=== PATIENT | female | born 1940 | race Hispanic/Latino ===

== ENCOUNTER 2018-02-13 13:57 | Emergency (ER) | payer MEDICARE ==
[2018-02-13 13:58] VITALS: BMI 36.8
[2018-02-13] MEDS ORDERED: TDAP Vaccine 0.5 mL Syr IM ONE (14:40)
--- NOTE | 2018-02-13 14:55 | ED PDOC ---
Arrival/HPI - General Chief Complaint: Trauma Time Seen by Provider: 02/13/18 14:20 Historian: Patient - History of Present Illness Narrative History of Present Illness (Text): 02/13/18 14:46 77 y/o female with PMH of HTN presents to the ED c/o headache, neck pain, and bilateral hand pain s/p witnessed mechanical fall 1 hour [employer]UL[employer]. Patient was walking down the sidewalk when she tripped on an uneven edge, falling to the ground and hitting her forehead and face. Denies LOC, was helped to her feet by two [facility] police officers. Pt not on blood thinners. Has not taken anything for pain. Unknown last tetanus. Compliant with hypertension medications. Denies dizziness, vision changes, N/V, abdominal pain, back pain, chest pain, SOB, numbness, weakness, paresthesias, or any other associated symptoms. PMD: Dr. Geoffrey Robertson Past Medical History - Infectious Disease Hx of Infectious Diseases: None - Reproductive Menopause: Yes - Cardiac Hx Hypertension: Yes - Pulmonary Hx Respiratory Disorders: No - Neurological Hx Neurological Disorder: No - HEENT Hx HEENT Disorder: No - Renal Hx Renal Disorder: No - Endocrine/Metabolic Hx Endocrine Disorders: No - Hematological/Oncological Hx Anemia: Yes - Integumentary Hx Dermatological Disorder: No - Musculoskeletal/Rheumatological Hx Musculoskeletal Disorders: Yes Hx Arthritis: Yes Hx Falls: No - Gastrointestinal Hx Diverticulitis: Yes - Genitourinary/Gynecological Hx Genitourinary Disorders: No - Psychiatric Hx Anxiety: Yes Hx Substance Use: No - Surgical History Other/Comment: ENDOSCOPY, COLONOSCOPY - Anesthesia Hx Anesthesia: Yes - Suicidal Assessment Feels Threatened In Home Enviroment: No Family/Social History - Physician Review Nursing Documentation Reviewed: Yes Family/Social History: No Known Family HX Smoking Status: Never Smoked Hx Alcohol Use: No Hx Substance Use: No Hx Substance Use Treatment: No Allergies/Home Meds Allergies/Adverse Reactions: Allergies prednisone Adverse Reaction (Verified 04/08/16 18:00) FATIGUE Home Medications: Home Meds Medication Instructions Recorded Confirmed Alprazolam [Xanax] 0.25 mg PO DAILY PRN 07/20/11 10/09/16 Esomeprazole Magnesium [Nexium] 40 mg PO DAILY 04/08/16 10/09/16 Lisinopril/Hydrochlorothiazide 1 each PO DAILY 10/09/16 10/09/16 [Lisinopril-Hctz 20-12.5 mg Tab] Physical Exam Vital Signs Reviewed: Yes Vital Signs Temp Pulse Resp BP Pulse Ox 02/13/18 14:15 97.9 F 75 16 173/100 H 98 Last Vital Signs Temp 98.1 F 02/13/18 16:11 Pulse 79 02/13/18 18:26 Resp 18 02/13/18 18:26 BP 154/82 H 02/13/18 18:26 Pulse Ox 97 02/13/18 18:26 Temperature: Afebrile Blood Pressure: Hypertensive Pulse: Regular Respiratory Rate: Normal Appearance: Positive for: Well-Appearing, Non-Toxic, Comfortable Pain Distress: None Mental Status: Positive for: Alert and Oriented X 3 - Systems Exam Head: Present: Normocephalic, Tenderness (left forehead), Swelling (mild, superficial to left forehead), Abrasion (mild, superficial to left forehead) Pupils: Present: PERRL Extroacular Muscles: Present: EOMI. No: Gaze Palsy Conjunctiva: Present: Normal. No: Injected Ears: Present: Normal, NORMAL TM, Normal Canal Mouth: Present: Moist Mucous Membranes Nose (External): Present: Other (mild swelling and erythema) Nose (Internal): No: No Active Bleeding, Septal Deviation, Septal Hematoma, Epistaxis Neck: Present: Normal Range of Motion, Other (mild pain on ROM). No: Meningeal Signs, MIDLINE TENDERNESS Respiratory/Chest: Present: Clear to Auscultation, Good Air Exchange, Tender to Palpation (right anterior inferior ribs), Other (normal inspection ). No: Respiratory Distress, Accessory Muscle Use, Decreased Breath Sounds Cardiovascular: Present: Regular Rate and Rhythm, Normal S1, S2, Peripheal Pulses Present Abdomen: Present: Normal Bowel Sounds, Other (normal inspection). No: Tenderness, Distention, Peritoneal Signs, Rebound, Guarding Back: Present: Normal Inspection. No: CVA Tenderness, Midline Tenderness, Para spinal Tenderness Upper Extremity: Present: Normal ROM, NORMAL PULSES, Tenderness (bilateral palms), Neurovascularly Intact, Capillary Refill < 2s, Other (ecchymosis to bilateral palms without laceration or abrasion. Full ROM, strength, sensation bilaterally. (-) snuffbox tenderness). No: Cyanosis, Edema, Swelling, Temperature Abnormalties, Deformity Lower Extremity: Present: Normal Inspection, NORMAL PULSES, Normal ROM, Neurovascularly Intact, Capillary Refill < 2 s, Other (small superficial abrasion left knee). No: Edema, Tenderness Neurological: Present: GCS=15, CN II-XII Intact, Speech Normal, Motor Func Grossly Intact, Normal Sensory Function, Normal Cerebellar Funct, Gait Normal, Memory Normal Skin: Present: Warm, Dry, Abrasion (left forehead, left knee), Other (Ecchymosis bilateral palms). No: Rashes Lymphatic: No: Cervical Adenopathy Psychiatric: Present: Alert, Oriented x 3, Normal Insight, Normal Concentration, Normal Affect, Normal Mood Medical Decision Making ED Course and Treatment: 02/13/18 14:55 Initial Plan: * Bilateral hand XR * Head CT * Cervical Spine CT * Maxillofacial CT * Tylenol On initial exam, patient in no acute distress but appears anxious, resting comfortably in wheelchair. 16:14 Now c/o right sided rib pain, worse with breathing. Pt TTP over anterior right inferior ribs. Will get PA chest with bilateral rib series. Case discussed with ED attending Dr. Calabrese, who agrees with plan of care and disposition. Both hands and wrists wrapped with [place] bandages. Tolerating PO without difficulty. 18:30 Imaging negative for acute pathology. Patient reports decrease in pain after tylenol. Patient states she will followup with her PMD tomorrow in the office. BP has improved with time and pain medications. Patient states she is feeling l ess anxious, requesting discharge home. Vitals stable for discharge home. Plan of care discussed with patient, and strict instructions given regarding prescriptions, importance of follow up, and signs to return to Emergency Department, to include headache, vision changes, dizziness, N/V, numbness, paresthesias, weakeness, or any other new/worsening symptoms. Patient verbalizes understanding of discussion. Patient A&Ox3, ambulating with steady gait, stable for discharge home. - RAD Interpretation Narrative RAD Interpretations (Text): 02/13/18 15:41 Left Hand: FINDINGS: BONES: No acute fracture or destructive bony lesion identified. JOINTS: Diffuse degenerative changes seen throughout the right hand but particularly at the basal joint where there is gross joint space narrowing and articular cortical sclerosis. No subluxation or dislocation appreciated. SOFT TISSUES: Normal. OTHER FINDINGS: None. IMPRESSION: No acute fracture or dislocation left hand. Degenerative change are identified as discussed above, particularly at the basal joint. Right Hand: FINDINGS: BONES: No acute fracture or destructive bony lesion identified. JOINTS: No subluxation or dislocation identified. Late stage osteoarthritis, including subchondral cyst formation, is appreciated at the basal joint with lesser degenerative changes seen throughout the remaining carpal metacarpal joints and mild degenerative changes seen throughout the interphalangeal joints diffusely. SOFT TISSUES: Normal. OTHER FINDINGS: None. IMPRESSION: No acute fracture or dislocation right hand. Degenerative changes are identified diffusely but particularly at the basal joint which is grossly degenerated. Maxillofacial CT FINDINGS: NASAL BONES: Unremarkable ORBITS: No fracture identified. Borderline inferior bilateral frontal scalp soft tissue edema extending to the supraorbital spaces versus variant soft tissue pattern. PARANASAL SINUSES/ MASTOIDS: Clear. MAXILLA: Unremarkable. MANDIBLE/ TEMPOROMANDIBULAR JOINTS: Unremarkable. SKULL BASE: Unremarkable. TEMPORAL BONES: Middle ears and mastoid grossly unremarkable. OTHER FINDINGS: None. IMPRESSION: No fracture throughout the facial bones. Limited questionable soft tissue edema inferior bilateral frontal scalp/supraorbital orbital distribution though this is not definite. Head CT: FINDINGS: HEMORRHAGE: No intracranial hemorrhage. BRAIN: Good corticomedullary differentiation is seen. Reiterated diffuse cerebral atrophy and chronic microangiopathy. No suspicious extra-axial fluid collection is identified and the midline brain anatomy appears grossly nonfocal as imaged. No mass effect identified. VENTRICLES: Unremarkable. No hydrocephalus. CALVARIUM: Unremarkable. PARANASAL SINUSES: Unremarkable as visualized. No significant inflammatory changes. MASTOID AIR CELLS: Unremarkable as visualized. No inflammatory changes. OTHER FINDINGS: None. IMPRESSION: Stable age-appropriate age related neuro degenerative changes are reiterated without definite acute interval findings, as discussed above. Cervical Spine CT: FINDINGS: VERTEBRAE: Mild straightening of the cervical curvature is appreciated without fracture. No spondylolisthesis. Limited multilevel cervical spondylosis is appreciate the mid cervical spine with congenital fusion at C5-6 vertebral bodies and likely bilateral facet joints as well. The odontoid process is intact though advanced degenerative changes seen the C1-2 articulation. Craniocervical junction appears intact. DISCS/SPINAL CANAL/NEURAL FORAMINA: At C2-3, there is a borderline degenerative left neural foraminal stenosis with none on the right. No significant central stenosis though minimal disc osteophyte complex identified. At C3-4, borderline central stenosis results from a circumferential disc osteophyte complex with asymmetric uncovertebral and facet arthropathy causing moderate left degenerative neural foraminal stenosis but none on the right. At C4-5, borderline central stenosis is evident due to circumferential disc osteophyte complex with asymmetric degenerative osteophytes resulting in moderate left but mild right neural foraminal stenoses. At C5-6, mild degenerative neural foraminal stenoses are identified bilaterally with no significant central canal stenosis. At C6-7, there is no significant central stenosis though limited disc osteophyte complex is present here. Moderate to severe bilateral neural foraminal stenoses are identified on degenerative basis. At C7-T1, no bony central canal or neural foraminal stenosis is apparent. No large disc herniation is identified at any specific level. MRI is more sensitive for added characterization as clinically warranted. PARASPINAL SOFT TISSUES: Unremarkable. OTHER FINDINGS: Right lobe thyroid nodule with none apparent at the left. IMPRESSION: 1. No fracture or spondylolisthesis. 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 2. Multilevel degenerative neural foraminal stenoses are identified with border line degenerative C3-4 and C4-5 central canal stenosis as per above. No large disc herniation. MRI is available for added characterization as clinically warranted. 3. Incidental right thyroid lobe nodule. Consider follow-up elective ultrasonography if not already evaluated. Rib and CXR: FINDINGS: RIGHT RIBS: No acute fracture or focal lesion visualized. LEFT RIBS: No acute fracture or focal lesion visualized. LUNGS: The lungs are well inflated and clear. PLEURA: No pneumothorax or pleural fluid. CARDIOVASCULAR: Normal cardiac size. No pulmonary vascular congestion. No aortic atherosclerotic calcification present OTHER FINDINGS: None. IMPRESSION: No acute rib fractures. No acute findings. Radiology Orders: 02/13/18 14:40 HAND LEFT 3 VIEWS ROUTINE [RAD] Stat HAND RIGHT 3 VIEWS [RAD] Stat 02/13/18 14:41 CERVICAL SPINE W/O CONTRAST [CT] Stat HEAD W/O CONTRAST [CT] Stat MAXILLOFACIAL W/O CONTRAST [CT] Stat Digital Content Specialist: Radiologist - Medication Orders Current Medication Orders: Discontinued Medications Acetaminophen (Tylenol 325mg Tab) 650 mg PO STAT STA Stop: 02/13/18 14:41 Tetanus/Reduced Diphtheria/Acell Pertussis (Boostrix Vaccine Inj) 0.5 ml IM .ONCE ONE Stop: 02/13/18 14:41 Disposition/Present on Arrival - Present on Arrival Any Indicators Present on Arrival: No History of DVT/PE: No History of Uncontrolled Diabetes: No Urinary Catheter: No History of Decub. Ulcer: No History Surgical Site Infection Following: None - Disposition Have Diagnosis and Disposition been Completed?: Yes Diagnosis: Fall, Hand contusion, Head injury Disposition: HOME/ ROUTINE Disposition Time: 18:20 Patient Plan: Discharge Condition: IMPROVED Discharge Instructions (ExitCare): Closed Head Injury (DC) Additional Instructions: Tylenol/ibuprofen for pain Rest, no strenuous activity Followup with primary doctor within 2 days Return to ER for any new/worsening symptoms Referrals: Ailyn LEON,Geoffrey Canales MD [Family Provider] - Follow up with primary Forms: [employer] ([place])
--- NOTE | 2018-02-13 15:43 | RAD ---
PROCEDURE: Left Hand Radiographs. HISTORY: fall r/o fracture COMPARISON: None. FINDINGS: BONES: No acute fracture or destructive bony lesion identified. JOINTS: Diffuse degenerative changes seen throughout the right hand but particularly at the basal joint where there is gross joint space narrowing and articular cortical sclerosis. No subluxation or dislocation appreciated. SOFT TISSUES: Normal. OTHER FINDINGS: None. IMPRESSION: No acute fracture or dislocation left hand. Degenerative change are identified as discussed above, particularly at the basal joint.
--- NOTE | 2018-02-13 15:48 | RAD ---
PROCEDURE: Right Hand Radiographs. HISTORY: fall r/o fracture COMPARISON: None. FINDINGS: BONES: No acute fracture or destructive bony lesion identified. JOINTS: No subluxation or dislocation identified. Late stage osteoarthritis, including subchondral cyst formation, is appreciated at the basal joint with lesser degenerative changes seen throughout the remaining carpal metacarpal joints and mild degenerative changes seen throughout the interphalangeal joints diffusely. SOFT TISSUES: Normal. OTHER FINDINGS: None. IMPRESSION: No acute fracture or dislocation right hand. Degenerative changes are identified diffusely but particularly at the basal joint which is grossly degenerated.
[2018-02-13 16:12] VITALS: TEMP 98.1
--- NOTE | 2018-02-13 17:03 | CT ---
Date of service: 02/13/2018 PROCEDURE: CT HEAD WITHOUT CONTRAST. HISTORY: headache COMPARISON: Unenhanced head CT 08/23/2017 as well as 08/07/2014.. TECHNIQUE: Axial computed tomography images were obtained through the head/brain without intravenous contrast. Radiation dose: Total exam DLP = 939.27 mGy-cm. This CT exam was performed using one or more of the following dose reduction techniques: Automated exposure control, adjustment of the mA and/or kV according to patient size, and/or use of iterative reconstruction technique. FINDINGS: HEMORRHAGE: No intracranial hemorrhage. BRAIN: Good corticomedullary differentiation is seen. Reiterated diffuse cerebral atrophy and chronic microangiopathy. No suspicious extra-axial fluid collection is identified and the midline brain anatomy appears grossly nonfocal as imaged. No mass effect identified. VENTRICLES: Unremarkable. No hydrocephalus. CALVARIUM: Unremarkable. PARANASAL SINUSES: Unremarkable as visualized. No significant inflammatory changes. MASTOID AIR CELLS: Unremarkable as visualized. No inflammatory changes. OTHER FINDINGS: None. IMPRESSION: Stable age-appropriate age related neuro degenerative changes are reiterated without definite acute interval findings, as discussed above.
--- NOTE | 2018-02-13 17:06 | CT ---
Date of service: 02/13/2018 PROCEDURE: CT MAXILLOFACIAL BONES WITHOUT CONTRAST HISTORY: facial injury COMPARISON: None available. TECHNIQUE: Contiguous axial CT images of the maxillofacial bones were obtained. Coronal and sagittal reformats were generated. Radiation dose: Total exam DLP = 730.88 mGy-cm. This CT exam was performed using one or more of the following dose reduction techniques: Automated exposure control, adjustment of the mA and/or kV according to patient size, and/or use of iterative reconstruction technique. FINDINGS: NASAL BONES: Unremarkable. ORBITS: No fracture identified. Borderline inferior bilateral frontal scalp soft tissue edema extending to the supraorbital spaces versus variant soft tissue pattern. PARANASAL SINUSES/ MASTOIDS: Clear. MAXILLA: Unremarkable. MANDIBLE/ TEMPOROMANDIBULAR JOINTS: Unremarkable. SKULL BASE: Unremarkable. TEMPORAL BONES: Middle ears and mastoid grossly unremarkable. OTHER FINDINGS: None. IMPRESSION: No fracture throughout the facial bones. Limited questionable soft tissue edema inferior bilateral frontal scalp/supraorbital orbital distribution though this is not definite.
--- NOTE | 2018-02-13 17:13 | CT ---
Date of service: 02/13/2018 PROCEDURE: CT Cervical Spine without contrast HISTORY: neck pain COMPARISON: None available. TECHNIQUE: Axial computed tomography images were obtained of the cervical spine without the use of intravenous contrast. Coronal and sagittal reformatted images were created and reviewed. Radiation dose: Total exam DLP = 697.97 mGy-cm. This CT exam was performed using one or more of the following dose reduction techniques: Automated exposure control, adjustment of the mA and/or kV according to patient size, and/or use of iterative reconstruction technique. FINDINGS: VERTEBRAE: Mild straightening of the cervical curvature is appreciated without fracture. No spondylolisthesis. Limited multilevel cervical spondylosis is appreciate the mid cervical spine with congenital fusion at C5-6 vertebral bodies and likely bilateral facet joints as well. The odontoid process is intact though advanced degenerative changes seen the C1-2 articulation. Craniocervical junction appears intact. DISCS/SPINAL CANAL/NEURAL FORAMINA: At C2-3, there is a borderline degenerative left neural foraminal stenosis with none on the right. No significant central stenosis though minimal disc osteophyte complex identified. At C3-4, borderline central stenosis results from a circumferential disc osteophyte complex with asymmetric uncovertebral and facet arthropathy causing moderate left degenerative neural foraminal stenosis but none on the right. At C4-5, borderline central stenosis is evident due to circumferential disc osteophyte complex with asymmetric degenerative osteophytes resulting in moderate left but mild right neural foraminal stenoses. At C5-6, mild degenerative neural foraminal stenoses are identified bilaterally with no significant central canal stenosis. At C6-7, there is no significant central stenosis though limited disc osteophyte complex is present here. Moderate to severe bilateral neural foraminal stenoses are identified on degenerative basis. At C7-T1, no bony central canal or neural foraminal stenosis is apparent. No large disc herniation is identified at any specific level. MRI is more sensitive for added characterization as clinically warranted. PARASPINAL SOFT TISSUES: Unremarkable. OTHER FINDINGS: Right lobe thyroid nodule with none apparent at the left. IMPRESSION: 1. No fracture or spondylolisthesis. 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 2. Multilevel degenerative neural foraminal stenoses are identified with borderline degenerative C3-4 and C4-5 central canal stenosis as per above. No large disc herniation. MRI is available for added characterization as clinically warranted. 3. Incidental right thyroid lobe nodule. Consider follow-up elective ultrasonography if not already evaluated.
--- NOTE | 2018-02-13 18:00 | RAD ---
Date of service: 02/13/2018 PROCEDURE: Radiographs of the chest and bilateral ribs HISTORY: rib pain s/p fall COMPARISON: None available. TECHNIQUE: Frontal radiograph of the chest and multiple oblique radiographs of the bilateral ribs were obtained. FINDINGS: RIGHT RIBS: No acute fracture or focal lesion visualized. LEFT RIBS: No acute fracture or focal lesion visualized. LUNGS: The lungs are well inflated and clear. PLEURA: No pneumothorax or pleural fluid. CARDIOVASCULAR: Normal cardiac size. No pulmonary vascular congestion. No aortic atherosclerotic calcification present OTHER FINDINGS: None. IMPRESSION: No acute rib fractures. No acute findings.
[2018-02-13 18:26] VITALS: BP 154/82; PULSE 79; RESP 18; O2SAT 97
== END 2018-02-13 18:26 | disposition home or self-care (01) ==
LOC: ED 13:57
DX: S09.90XA Unspecified injury of head, initial encounter (principal); S60.229A Contusion of unspecified hand, initial encounter; W01.0XXA Fall on same level from slipping, tripping and stumbling without subsequent striking against object, initial encounter; Y92.480 Sidewalk as the place of occurrence of the external cause; I10 Essential (primary) hypertension; Z23 Encounter for immunization

== ENCOUNTER → 2018-05-03 | Outpatient (CLI) | payer MEDICARE | LOC: RAD 08:31 ==

== ENCOUNTER 2018-05-07 21:42 | Emergency (ER) | payer MEDICARE ==
[2018-05-07 21:50] VITALS: BMI 35.5
[2018-05-07 21:52] VITALS: RESP 18; TEMP 97.6
[2018-05-07] MEDS ORDERED: Sodium Chloride 0.9% 1,000 ML IV SCH (22:30)
[2018-05-07 23:12] LABS: BASO # 0.03 K/mm3 (0.0-2.0); BASO % 0.4 % (0.0-3.0); EOS # 0.2 (0.0-0.7); EOS % 2.2 % (1.5-5.0); LYMPH # 1.5 (1.2-3.4); LYMPH % 20.2 % (22.0-35.0); MEAN CELL VOLUME 95.1 fl (80.0-105.0); MEAN CORPUSCULAR HEMOGLOBIN 30.8 pg (25.0-35.0); MEAN CORPUSCULAR HGB CONC 32.3 g/dl (31.0-37.0); MEAN PLATELET VOLUME 12.3 fl (7.0-11.0); MONO # 0.7 (0.1-0.6); MONO % 8.7 % (1.0-6.0); RBC 3.9 10^6/uL (3.5-6.1); RED CELL DISTRIBUTION WIDTH 13.2 % (11.5-14.5); WHITE BLOOD COUNT 7.6 10^3/uL (4.5-11.0)
[2018-05-08 00:15] LABS: ALB/GLOB RATIO 1.1 (1.1-1.8); ALBUMIN 3.8 g/dL (3.0-4.8); ALT/SGPT 9 U/L (7-56); AST/SGOT 25 U/L (14-36); BLOOD UREA NITROGEN 30 mg/dL (7-21); CALCIUM 9.6 mg/dL (8.4-10.5); GFR NON-AFRICAN AMERICAN 34
[2018-05-08 00:26] LABS: TROPONIN I < 0.01 ng/mL
[2018-05-08 00:44] LABS: URINE BILIRUBIN NEGATIVE (NEGATIVE); URINE BLOOD NEGATIVE (NEGATIVE); URINE GLUCOSE (UA) NEGATIVE (NEGATIVE); URINE LEUKOCYTE ESTERASE NEGATIVE Leu/uL (NEGATIVE); URINE PROTEIN NEGATIVE mg/dL (<30 mg/dL); URINE UROBILINOGEN 0.2 E.U./dL (<1 E.U./dL)
[2018-05-08 00:48] LABS: URINE APPEARANCE CLEAR (CLEAR); URINE COLOR YELLOW (YELLOW)
[2018-05-08 02:14] VITALS: BP 149/78; PULSE 75; O2SAT 100
--- NOTE | 2018-05-08 02:40 | ED PDOC ---
Arrival/HPI - General Chief Complaint: Weakness/Neurological Deficit Historian: Patient - History of Present Illness Narrative History of Present Illness (Text): 05/08/18 02:36 75 year old female with a past medical history that includes hypertension, anx iety, and diverticulitis, presents to the Emergency Department complaining of headache. Patient also informs having 3-4 episodes of watery diarrhea. Patient states she has been eating normally. Patient denies any fever, nausea, vomiting, dysuria, hematuria, vaginal bleeding or discharge, or any other complaint. Time/Duration: 24 hours Symptom Onset: Gradual Symptom Course: Unchanged Activities at Onset: Light Context: Home Past Medical History - Provider Review Nursing Documentation Reviewed: Yes - Infectious Disease Hx of Infectious Diseases: None - Cardiac Hx Cardiac Disorders: Yes Hx Hypertension: Yes - Pulmonary Hx Respiratory Disorders: No - Neurological Hx Neurological Disorder: No - HEENT Hx HEENT Disorder: No - Renal Hx Renal Disorder: No - Endocrine/Metabolic Hx Endocrine Disorders: No - Hematological/Oncological Hx Blood Disorders: Yes Hx Anemia: Yes - Integumentary Hx Dermatological Disorder: No - Musculoskeletal/Rheumatological Hx Musculoskeletal Disorders: Yes Hx Arthritis: Yes - Gastrointestinal Hx Gastrointestinal Disorders: Yes Hx Diverticulitis: Yes - Genitourinary/Gynecological Hx Genitourinary Disorders: No - Psychiatric Hx Psychophysiologic Disorder: Yes Hx Anxiety: Yes Hx Substance Use: No - Surgical History Other/Comment: ENDOSCOPY, COLONOSCOPY - Anesthesia Hx Anesthesia: Yes - Suicidal Assessment Feels Threatened In Home Enviroment: No Family/Social History - Physician Review Nursing Documentation Reviewed: Yes Family/Social History: No Known Family HX Smoking Status: Never Smoked Hx Alcohol Use: No Hx Substance Use: No Hx Substance Use Treatment: No Allergies/Home Meds Allergies/Adverse Reactions: Allergies prednisone Adverse Reaction (Verified 05/07/18 21:50) FATIGUE Home Medications: Home Meds Medication Instructions Recorded Confirmed Alprazolam [Xanax] 0.25 mg PO DAILY PRN 07/20/11 10/09/16 Esomeprazole Magnesium [Nexium] 40 mg PO DAILY 04/08/16 10/09/16 Lisinopril/Hydrochlorothiazide 1 each PO DAILY 10/09/16 10/09/16 [Lisinopril-Hctz 20-12.5 mg Tab] Review of Systems - Physician Review All systems were reviewed & negative as marked: Yes - Review of Systems Constitutional: absent: Fevers Gastrointestinal: Diarrhea. absent: Nausea, Vomiting Genitourinary Female: absent: Dysuria, Hematuria, Vaginal Bleeding, Vaginal Discharge Neurological: Headache Physical Exam Vital Signs Reviewed: Yes Vital Signs Temp Pulse Resp BP Pulse Ox 05/08/18 02:13 75 18 149/78 100 05/08/18 00:54 76 18 155/75 H 96 05/07/18 21:50 97.6 F 81 18 176/100 H 96 Temperature: Afebrile Blood Pressure: Hypertensive Pulse: Regular Respiratory Rate: Normal Appearance: Positive for: Well-Appearing, Non-Toxic, Comfortable Pain Distress: None Mental Status: Positive for: Alert and Oriented X 3 Medical Decision Making ED Course and Treatment: 05/08/18 02:41 Impression: 78 year old female presents with headache and watery stool. Plan: -- CT ABD & Pelvis -- EKG -- Urine Cultures -- Reassess and disposition Prior Visits: Notes and results from previous visits were reviewed. Progress Notes: - Lab Interpretations Lab Results: Troponin I < 0.01 ng/mL 05/07/18 23:45 Total Bilirubin 0.3 mg/dL (0.2-1.3) 05/07/18 23:45 AST 25 U/L (14-36) 05/07/18 23:45 ALT 9 U/L (7-56) 05/07/18 23:45 Alkaline Phosphatase 104 U/L (38-126) 05/07/18 23:45 Total Protein 7.4 g/dL (5.8-8.3) 05/07/18 23:45 Albumin 3.8 g/dL (3.0-4.8) 05/07/18 23:45 Globulin 3.5 gm/dL 05/07/18 23:45 Albumin/Globulin Ratio 1.1 (1.1-1.8) 05/07/18 23:45 Urine Color Yellow (YELLOW) 05/08/18 00:30 Urine Appearance Clear (CLEAR) 05/08/18 00:30 Urine pH 6.0 (4.7-8.0) 05/08/18 00:30 Ur Specific [place] 1.020 (1.005-1.035) 05/08/18 00:30 Urine Protein Negative mg/dL (<30 mg/dL) 05/08/18 00:30 Urine Glucose (UA) Negative mg/dL (NEGATIVE) 05/08/18 00:30 Urine Ketones Negative mg/dL (NEGATIVE) 05/08/18 00:30 Urine Blood Negative (NEGATIVE) 05/08/18 00:30 Urine Nitrate Negative (NEGATIVE) 05/08/18 00:30 Urine Bilirubin Negative (NEGATIVE) 05/08/18 00:30 Urine Urobilinogen 0.2 E.U./dL (<1 E.U./dL) 05/08/18 00:30 Ur Leukocyte Esterase Negative Valentin/uL (NEGATIVE) 05/08/18 00:30 - RAD Interpretation Radiology Orders: 05/08/18 00:21 ABD & PELVIS W/O PO OR IV CONT [CT] Stat - Medication Orders Current Medication Orders: Discontinued Medications Sodium Chloride (Sodium Chloride 0.9%) 1,000 mls @ 100 mls/hr IV .Q10H MARJORIE Last Admin: 05/07/18 23:09 Dose: 100 mls/hr eMAR Start Stop Document 05/07/18 23:09 CNR (Rec: 05/07/18 23:10 CNR [id number]) Intravenous Solution Start Date 05/07/18 Start Time 23:10 - Scribe Statement The provider has reviewed the documentation as recorded by the Scribe Erik Gaston All medical record entries made by the Scribe were at my direction and personally dictated by me. I have reviewed the chart and agree that the record accurately reflects my personal performance of the history, physical exam, medical decision making, and the department course for this patient. I have also personally directed, reviewed, and agree with the discharge instructions and disposition. Disposition/Present on Arrival - Present on Arrival Any Indicators Present on Arrival: No History of DVT/PE: No History of Uncontrolled Diabetes: No Urinary Catheter: No History of Decub. Ulcer: No History Surgical Site Infection Following: None - Disposition Have Diagnosis and Disposition been Completed?: Yes Diagnosis: Diarrhea Disposition: HOME/ ROUTINE Disposition Time: 01:50 Condition: IMPROVED Discharge Instructions (ExitCare): Diarrhea in Adolescents and Adults, Low Salt Diet Additional Instructions: JAUN MONTE, thank you for letting us take care of you today. The emergency medical care you received today was directed at your acute symptoms. If you were prescribed any medication, please fill it and take as directed. It may take several days for your symptoms to resolve. Return to the Emergency Department if your symptoms worsen, do not improve, or if you have any other problems. Please contact your doctor or call one of the physicians/clinics you have been referred to that are listed on the Patient Visit Information form that is included in your discharge packet. Bring any paperwork you were given at discharge with you along with any medications you are taking to your follow up visit. Our treatment cannot replace ongoing medical care by a primary care provider outside of the emergency department. Thank you for allowing the [facility] team to be part of your care today. Follow up with your primary care doctor this week for re-evaluation and further management. Referrals: Ailyn LEON,Geoffrey Canales MD [Primary Care Provider] - Follow up with primary Forms: [employer] ([place])
--- NOTE | 2018-05-08 10:05 | CT ---
Date of service: 05/08/2018 PROCEDURE: CT Abdomen and Pelvis without intravenous contrast HISTORY: mid-abdominal pain COMPARISON: None. TECHNIQUE: Technique. Contrast dose: Radiation dose: Total exam DLP = 1051.7 mGy-cm. This CT exam was performed using one or more of the following dose reduction techniques: Automated exposure control, adjustment of the mA and/or kV according to patient size, and/or use of iterative reconstruction technique. FINDINGS: LOWER THORAX: Unremarkable. LIVER: Unremarkable. No gross lesion or ductal dilatation. GALLBLADDER AND BILE DUCTS: Unremarkable. PANCREAS: Unremarkable. No gross lesion or ductal dilatation. SPLEEN: Unremarkable. ADRENALS: Unremarkable. No mass. KIDNEYS AND URETERS: Bilateral renal cysts measuring up to 11 centimeters in the left kidney. No hydronephrosis. No solid mass. VASCULATURE: Unremarkable. No aortic aneurysm. No aortic atherosclerotic calcification or mural plaque present. BOWEL: Extensive colonic diverticulosis. No obstruction. No gross mural thickening. APPENDIX: Unremarkable. Normal appendix. PERITONEUM: Unremarkable. No free fluid. No free air. LYMPH NODES: Unremarkable. No enlarged lymph nodes. BLADDER: Unremarkable. REPRODUCTIVE: 4.7 centimeter left ovarian cyst as well as fluid density of the endometrial canal; recommend correlation with pelvic MRI. BONES: No acute fracture. OTHER FINDINGS: None. IMPRESSION: 4.7 centimeter left ovarian cyst as well as fluid density of the endometrial canal; recommend gynecological correlation. Bilateral renal cysts. Colonic diverticulosis.
--- NOTE | 2018-05-08 17:20 | CARD ---
APPROVED REPORT Date of service: 05/07/2018 EKG Measurement Heart [id number] <Conclusion> Normal sinus rhythm Normal ECG
== END 2018-05-08 02:13 | disposition home or self-care (01) ==
LOC: ED 21:42
DX: R19.7 Diarrhea, unspecified (principal); I10 Essential (primary) hypertension
CPT/HCPCS: 74176; 80053; 81003; 82550; 83615; 83735; 84484; 85025; 87086; 93005; 99285; J7030

== ENCOUNTER 2018-07-04 06:33 | Day surgery (SDC) | payer MEDICARE, OTHER ==
[2018-06-27 09:58] VITALS: BMI 35.8
[2018-07-04] MEDS ORDERED: Propofol 10 mg/ml Inj (20 ML) ONE ×2 (08:04→08:26)
[2018-07-04] MEDS ORDERED: Sodium Chloride 0.9% 1,000 ML IV SCH (09:00)
[2018-07-04 09:22] VITALS: PULSE 66
[2018-07-04 10:00] VITALS: BP 126/66; RESP 16; TEMP 97.4; O2SAT 100
== END 2018-07-04 10:06 | disposition home or self-care (01) ==
LOC: ENDO 06:33
PROVIDERS: ATTEND Specialist
DX: K29.70 Gastritis, unspecified, without bleeding (principal); K22.8 Other specified diseases of esophagus; D12.3 Benign neoplasm of transverse colon; K57.30 Diverticulosis of large intestine without perforation or abscess without bleeding; D17.5 Benign lipomatous neoplasm of intra-abdominal organs; K64.8 Other hemorrhoids
CPT/HCPCS: 43239; 45385; 88305; 88342; J2704; J7030; J7040